=== PATIENT | female | born 2000 | race African-American/Black ===

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

== ENCOUNTER 2019-11-16 04:35 | Inpatient (IN) | payer BC, OTHER ==
[2019-11-16] MEDS ORDERED: AMPICILLIN SODIUM 2 GM VIAL ONE (05:22)
[2019-11-16 06:03] VITALS: BMI 31.3
[2019-11-16] MEDS ORDERED: AMPICILLIN - 2 GM in SODIUM CHLORIDE 100 ML IVPB ONE (06:17)
--- NOTE | 2019-11-16 06:19 | HP ---
Past Medical History - Admission Chief Complaint: Contractions History of Present Illness: 19yo @ 39.1wks by mario, AMARILYS 11/22/19 here with contractions. No VB/LOF. 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: Alzheimer's, CVA, Dementia, Migraine, Multiple Sclerosis, Peripheral Neuropathy, Parkinson's, Seizure, Syncope, TIA, Vertigo, Other Cardiovascular: No: AFIB, Aneurysm, Aortic Insufficiency, Aortic Stenosis, CAD, CHF, Deep Vein Thrombosis, HTN, Hyperlipdemia, PA, Mitral Insufficiency, Mitral Stenosis, Murmur, Pulmonary Hypertension, Other Pulmonary: No: Asthma, Bronchitis, Cancer, COPD, O2 Dependent, Pneumonia, Previously Intubated, Pulmonary Embolus, Pulmonary Fibrosis, Sleep Apnea, Other Gastrointestinal: No: Ascites, Cancer, Constipation, Crohn's Disease, Diverticulitis, Diverticulosis, Esophageal Varices, Gastritis, GERD, GI Bleed, Hemorrhoids, Hiatal Hernia, Inflamatory Bowel Disease, Irritable Bowel Disease, Pancreatitis, Peptic Ulcer Disease, Ulcerative Colitis, Other Hepatobiliary: No: Cirrhosis, Cholelithiasis, Cholecystitis, Choledocholithiasis, Hepatitis A, Hepatitis B, Hepatitis C, Other Renal/: No: Renal Failure, Renal Inusuff, BPH, Cancer, Hematuria, Hemodialysis, Neurogenic Bladder, Renal Calculi, UTI, Other Reproductive: No: Ectopic , Endometriosis, Fibroids, PID, Polycystic Ovary Syndrome, Postmenopausal, Other ...: 2 ...Para: 1 ...Term: 1 ...: 0 ...Spon : 0 ...Induced : 0 ...Living Children: 1 ...Multiple Gestation: 0 ...LMP: 02/27/19 ... Weeks Gestation by Dates: 37.3 ...EDC by Dates: 12/04/19 ...EDC by Sono: 11/22/19 Heme/Onc: Yes: Anemia Infectious Disease: No: AIDS, C-Diff, Herpes Zoster, HIV, MRSA, STD's, Tuberculosis, VREF, Other Psych: No: Addictions, Anxiety, Bipolar, Depression, Panic, Psychosis, Schizophrenia, Other Musculoskeletal: No: Bursitis, Chronic low back pain, Hemiparesis, Hemiplegia, Osteoarthritis, Paraplegia, Other Rheumatology: No: Fibromyalgia, Gout, Lupus, Rheumatoid Arthritis, Sarcoidosis, Vasculitis, Other Endocrine: No: Kittson's Disease, James's Disease, Diabetes Insipidus, Diabetes Mellitus, Hyperparathyroidism, Hyperthyroidism, Hypothyroidism, Osteopenia, SIADH, Other Dermatology: No: Basal Cell, Cellulitis, Eczema, Melanoma, Psoriasis, Squamous Cell, Other - Past Surgical History Past Surgical History: Yes: None Hx Myomectomy: No Hx Transabdominal Cerclage: No - Smoking History Smoking history: Never smoked Have you smoked in the past 12 months: No - Alcohol/Substance Use Hx Alcohol Use: No History of Substance Use: reports: None - Social History Usual Living Arrangement: Yes: With Significant Other Do you think of yourself as: Straight/Heterosexual ADL: Independent History of Recent Travel: No Home Medications - Allergies Allergies/Adverse Reactions: Allergies Allergy/AdvReac Type Severity Reaction Status Date / Time No Known Allergies Allergy Verified 11/16/19 05:48 - Home Medications Home Medications: Ambulatory Orders Pnv No.95/Ferrous Fum/Folic AC [ Vitamin Tablet] 1 tab PO DAILY 11/16/19 Review of Systems - Review of Systems Constitutional: reports: No Symptoms Cardiovascular: reports: No Symptoms Respiratory: reports: No Symptoms Physical Exam - Maternity Vital Signs: Vital Signs Temperature 98.5 F 11/16/19 05:54 Pulse Rate 89 11/16/19 05:54 Respiratory Rate 20 11/16/19 05:54 Blood Pressure 123/68 11/16/19 05:54 O2 Sat by Pulse Oximetry (%) - Abdominal Exam/OB Number of Fetuses: Single Presentation: Vertex Contractions: Yes Regularity: Regular Intensity: Mod/Strong Monitor Mode: External Heart Rate Location: [facility] Category: I Accelerations: Non-Uniform Decelerations: None - Vaginal Exam/OB Vaginal Bleeding: No Dilatation (cm): 6 Effacement (%): 100 Amniotic Membrane Status: Intact Presentation: Vertex/Position Station: -1 - Physical Exam Edema: No Problem List - Problems (1) 39 weeks gestation of Code(s): Z3A.39 - 39 WEEKS GESTATION OF Assessment/Plan 19yo @ 39.1wks here in labor Admit to L&D NPO, IVFs Admission labs Cat I tracing GBS status unavailable; Amp given Pitocin/AROM prn Epidural prn Anticipate Carmen Roque MD
--- NOTE | 2019-11-16 06:19 | PN ---
Progress Note, Labor Vaginal Exam #1 Labor Exam Date: 11/16/19 Labor Exam Time: 06:05 Heart Rate (range): Cat I Dilatation: 6-7 Effacement (%): 100 Presentation: Vertex/Position Remarks: AROM, clears Epidural prn Anticipate Carmen Roque MD
[2019-11-16] MEDS ORDERED: DEXTROSE 5%-LACTATED RINGERS 1,000 ML IV SCH (06:30)
[2019-11-16 06:37] LABS: BASO % 0.4 % (0-2.0); EOS % 0.8 % (0-4.5); HEMATOCRIT 35.9 % (32.4-45.2); HEMOGLOBIN 11.8 GM/dL (10.7-15.3); LYMPH % 28.8 % (8-40); MCH 28.2 pg (25.7-33.7); MCHC 32.8 g/dl (32.0-36.0); MEAN PLT VOLUME 8.9 fl (7.5-11.1); MONO % 9.2 % (3.8-10.2); NEUT % 60.8 % (42.8-82.8); PLATELET COUNT 196 K/MM3 (134-434); RBC 4.18 M/mm3 (3.60-5.2); RDW 15.7 % (11.6-15.6); WHITE BLOOD COUNT 7.6 K/mm3 (4.0-10.0)
[2019-11-16 06:44] LABS: INR 0.88 (0.83-1.09); PROTHROMBIN TIME (PATIENT) 10.4 SEC (9.7-13.0)
[2019-11-16 06:47] LABS: ACTIVATED PTT 25.2 SECONDS (25.2-36.5)
[2019-11-16 06:50] LABS: BLOOD UREA NITROGEN 7.7 mg/dL (7-18); CALCIUM 9.2 mg/dL (8.5-10.1); CREATININE 0.6 mg/dL (0.55-1.3); POTASSIUM 3.8 mmol/L (3.5-5.1)
[2019-11-16] MEDS ORDERED: OXYTOCIN 30 UNITS in 0.9% NS 30 UNIT/500 ML INFUS.BAG IVPB ONE (07:07)
[2019-11-16] MEDS ORDERED: OXYTOCIN 20 UNITS in 0.9% NS 20 UNIT/1,000 ML INFUS.BAG IV ONE (07:07)
[2019-11-16] MEDS ORDERED: OXYTOCIN 30 UNITS in 0.9% NS 30 UNIT/500 ML INFUS.BAG IVPB SCH (07:15)
--- NOTE | 2019-11-16 07:19 | PN ---
Progress Note, Labor Vaginal Exam #2 Labor Exam Date: 11/16/19 Labor Exam Time: 07:18 Heart Rate (range): Cat I Dilatation: 7-8 Effacement (%): 100 Amniotic Membrane Status: Ruptured Presentation: Vertex/Position Station: -1 Remarks: No significant change given active labor, here 3 hours with only 1cm dilation change. Pitocin started to make contractions regular Offered epidural, declined Anticipate FREDI Roque MD
--- NOTE | 2019-11-16 08:08 | PN ---
Progress Note, Labor Vaginal Exam #2 Labor Exam Date: 11/16/19 Labor Exam Time: 08:08 Heart Rate (range): Cat I Dilatation: 8 Effacement (%): 100 Amniotic Membrane Status: Ruptured Presentation: Vertex/Position Station: 0 Remarks: Continue current management Anticipate FREDI Roque MD
[2019-11-16] MEDS ORDERED: BENZOCAINE 20% 57 GM BOTTLE TP PRN (09:10)
[2019-11-16] MEDS ORDERED: WITCH HAZEL 50% (TUCKS) 40 PAD/JAR PAD TP PRN (09:10)
[2019-11-16] MEDS ORDERED: BISACODYL 10 MG SUPP.RECT RC PRN (09:10)
[2019-11-16] MEDS ORDERED: BENZOCAINE 28 GM HEMORRHOIDAL OINTMENT TP PRN (09:10)
[2019-11-16] MEDS ORDERED: OXYTOCIN 20 UNITS in 0.9% NS 20 UNIT/1,000 ML INFUS.BAG IV SCH (09:15)
--- NOTE | 2019-11-16 09:17 | PN ---
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 Shoulders delivered w/o difficulty followed by the rest of the body. Cord clamped and cut after delay. Sample for blood obtained and placenta delivered spontaneously and intact, 3VC. Exam revealed excellent hemostasis and no lacerations. Fundus is firm and EBL is 250ml. Patient in stable condition and sp onge/instrument count correct x 2 and confirmed by nurse.
[2019-11-16] MEDS ORDERED: IBUPROFEN 600 MG TABLET (FP) PO ONE (09:20)
[2019-11-16] MEDS: ACETAMINOPHEN 325 MG TABLET (FP) PO PRN ×3 (09:30→20:19)
[2019-11-16] MEDS: IBUPROFEN 600 MG TABLET (FP) PO PRN ×2 (09:30→20:19)
[2019-11-16] MEDS: AMPICILLIN - 1 GM in SODIUM CHLORIDE 100 ML IVPB SCH ×2 (10:12→13:37)
--- NOTE | 2019-11-17 06:17 | DS ---
Physical Examination Vital Signs: Vital Signs Temperature 98.3 F 11/17/19 02:00 Pulse Rate 93 H 11/17/19 02:00 Respiratory Rate 18 11/17/19 02:00 Blood Pressure 120/72 11/17/19 02:00 O2 Sat by Pulse Oximetry (%) 100 11/16/19 10:00 Findings/Remarks: ambulating, tolerating PO, lochia decreased, voiding, PP precautions discussed. Patient desires to go home today Constitutional: Yes: No Distress HENT: Yes: Atraumatic Neck: Yes: Supple Cardiovascular: Yes: Regular Rate and Rhythm Respiratory: Yes: Regular Gastrointestinal: Yes: Normal Bowel Sounds ...Rectal Exam: Yes: Other Renal/: Yes: Other (decreased lochia) Breast(s): Yes: Other Musculoskeletal: Yes: WNL Extremities: Yes: WNL Edema: Yes Edema: LLE: Trace, RLE: Trace Integumentary: Yes: WNL Neurological: Yes: Alert, Oriented ...Motor Strength: WNL Psychiatric: Yes: Alert, Oriented Labs: CBC, BMP 11/16/19 06:00 11/16/19 06:00 Discharge Summary Problems reviewed: Yes Reason For Visit: LABOR ADMIT Current Active Problems 39 weeks gestation of (Acute) Procedures: Principal: Vaginal delivery Hospital Course: Uncomplicated recovery Condition: Stable - Instructions Diet, Activity, Other Instructions: Regular Diet Follow up in 4 weeks for your visit Call MD with any questions or concerns Referrals: Charlotte Daly CNM [Certified Nurse Director Of Event Sales] - Laverne Roque MD [Staff Physician] - Soumya Taylor MD [Primary Care Provider] - Disposition: HOME - Home Medications Comprehensive Discharge Medication List: Ambulatory Orders Breast Pump 1 each MC 5XD 30 Days #1 each 11/16/19 Ferrous Sulfate [Feosol] 325 mg PO DAILY #30 tablet 11/16/19 Ibuprofen 600 mg PO Q6H PRN #30 tablet 11/16/19 Pnv No.95/Ferrous Fum/Folic AC [ Vitamin Tablet] 1 tab PO DAILY 11/16/19 Prescription Drug Monitoring Program (I-STOP) results: I-STOP not reviewed
--- NOTE | 2019-11-17 06:40 | OP ---
Operative Note - Note: Operative Date: 11/17/19 Pre-Operative Diagnosis: incomplete AB Operation: D&C Post-Operative Diagnosis: Same as Pre-op Surgeon: Lucio Santos Specimens Removed: retained POC Operative Report Dictated: Yes
[2019-11-17 07:21] LABS: BASO % 0.6 % (0-2.0); HEMATOCRIT 30.1 % (32.4-45.2); LYMPH % 22.6 % (8-40); MCH 29.1 pg (25.7-33.7); MCHC 33.3 g/dl (32.0-36.0); MEAN CELL VOLUME 87.6 fl (80-96); MEAN PLT VOLUME 9.2 fl (7.5-11.1); MONO % 9.4 % (3.8-10.2); NEUT % 66.4 % (42.8-82.8); PLATELET COUNT 175 K/MM3 (134-434); RBC 3.43 M/mm3 (3.60-5.2); RDW 15.8 % (11.6-15.6); WHITE BLOOD COUNT 11.3 K/mm3 (4.0-10.0)
[2019-11-17 08:59] VITALS: BP 120/74; PULSE 70; TEMP 98.2
[2019-11-17] MEDS ORDERED: DIPHTH,PERTUSS(ACELL),TET 0.5 ML DISP.SYRIN IM ONE (10:00)
[2019-11-17] MEDS ORDERED: SENNOSIDES/DOCUSATE COMBO (SENNA PLUS) TABLET (UD) PO PRN (22:00)
== END 2019-11-17 13:30 | disposition home or self-care (01) | DRG 560 ==
LOC: JDEL 04:35 → JLDR 04:36 → J3W 11:00
PROVIDERS: ADMIT Obstetrics & Gynecology; ATTEND Obstetrics & Gynecology
PROC: 10907ZC Drainage of Amniotic Fluid, Therapeutic from Products of Conception, Via Natural or Artificial Opening (ICD-10-PCS; principal; 2019-11-16)
PROC: 10E0XZZ Delivery of Products of Conception, External Approach (ICD-10-PCS; 2019-11-16)
DX: O99.214 Obesity complicating childbirth (principal); Z3A.39 39 weeks gestation of pregnancy; Z37.0 Single live birth; E66.9 Obesity, unspecified
CPT/HCPCS: 36415; 59409; 80048; 85025; 85610; 85730; 86780; 86850; 86900; 86901; 87389; 90715; U0003